=== PATIENT | male | born 2000 | race Caucasian/White ===

== ENCOUNTER 2020-07-25 11:44 | Emergency (ER) | payer BC ==
[~2020-07-25] VITALS: Ht 172.7 cm; Wt 63.6 kg
[~2020-07-25 11:44] MED LIST: HUMALOG100 U/ML SQ; LANTUS100 U/ML SQ; LEVEMIR FLEX100 U/ML SQ; NOVOLOG FLEX100 U/ML SQ; PEPCID 20MG TAB20 MG PO
[2020-07-25 11:52] VITALS: TEMP 98.4
[2020-07-25 12:23] LABS: BASO # 0.1 (0.0-0.2); BASO % 1.2 % (0.0-2.0); EOS # 0.1 (0.0-0.7); EOS % 1.9 % (0-4.0); GRAN # 2.6 (1.4-6.5); GRAN % 51.2 % (42.2-75.2); HEMATOCRIT 44.7 % (42.0-52.0); HEMOGLOBIN 15.3 g/dl (13.5-18.0); LYMPH % 39.5 % (20.0-51.0); MEAN CELL VOLUME 89 fl (80.0-100.0); MEAN CORPUSCULAR HEMOGLOBIN 31 pg (27.0-31.0); MEAN CORPUSCULAR HGB CONC 34 g/dl (33.0-37.0); MEAN PLATELET VOLUME 9.9 fl (7.4-10.4); MONO # 0.3 (0.1-0.6); PLATELET COUNT 305 K/mm3 (130-400); REDCELL DISTRIBUTION WIDTH-CV 12.4 % (11.5-14.5)
[2020-07-25 12:26] LABS: ALANINE AMINOTRANSFERASE 15 U/L (4-49); ALBUMIN 4.7 gm/dL (3.5-5.0); ALKALINE PHOSPHATASE 57 U/L (50-136); ANION GAP 8 mmol/L (7-16); AST,SGOT 26 U/L (15-37); BILIRUBIN,TOTAL 1.1 mg/dL (0.0-1.0); BLOOD UREA NITROGEN 9 mg/dL (9-20); CALCIUM 9.5 mg/dL (8.4-10.2); CARBON DIOXIDE 30 mmol/L (22-30); CHLORIDE 102 mmol/L (98-107); CREATININE, serum 0.84 (0.66-1.25); GLUCOSE 132 mg/dL (74-106); POTASSIUM 4.2 mmol/L (3.4-5.0); SODIUM 140 mmol/L (137-145); TOTAL PROTEIN 7.8 gm/dL (6.4-8.2)
[2020-07-25 12:39] LABS: TROPONIN-I < 0.012 ng/mL (0.000-0.035)
[2020-07-25 13:44] VITALS: BP 112/77; PULSE 78
== END 2020-07-25 14:44 | disposition home or self-care (01) ==
LOC: COL.ER 11:44
PROVIDERS: Physician Assistant
DX: R07.89 Other chest pain (principal); E11.9 Type 2 diabetes mellitus without complications; Z79.4 Long term (current) use of insulin
CPT/HCPCS: J1885